=== PATIENT | female | born 1975 | race African-American/Black ===

== ENCOUNTER 2017-06-23 20:10 | Emergency (ER) | payer OTHER ==
[2017-06-23 20:15] VITALS: BP 149/83; PULSE 71; RESP 20; TEMP 98.1; O2SAT 100
[2017-06-23] MEDS ORDERED: MEDI220T PO (21:08)
[2017-06-23] MEDS ORDERED: PRED20 PO (21:08)
--- NOTE | 2017-06-23 21:09 | PD ---
HPI . Head injury Chief Complaint: Headache Time Seen by Provider: 20:30 Travel History International Travel<30 days: No Contact w/Intl Traveler<30days: No Traveled to known affect area: No History of Present Illness HPI 42-year-old female presents to emergency room for evaluation of head injury that occurred last night. Patient was moving a dryer and bumped the left frontal aspect of skull. Patient denies any loss consciousness. Patient does not take any blood thinners. Patient has history of MS. Patient states that when she has her MS exacerbations she has numbness and tingling in her right arm. PFSH Past Medical History Neurologic: Yes (MS) Tetanus Vaccination: > 5 Years Influenza Vaccination: No ?: Not LMP: 06/17/17 Past Surgical History Surgical History: No Previous Surgery Social History Alcohol Use: Yes (socially) Tobacco Use: No Substance Use: No Allergies-Medications (Allergen,Severity, Reaction): Coded Allergies: No Known Allergies (Unverified , 06/23/17) Reported Meds & Prescriptions Reported Meds & Active Scripts Active Naproxen Sodium 220 Mg Tab 440 Mg PO BID PRN Prednisone 20 Mg Tab 40 Mg PO DAILY 5 Days Take 40 mg (2 tablets) daily for 5 days Review of Systems Except as stated in HPI: all other systems reviewed are Neg Physical Exam Narrative GENERAL: Well-nourished, well-developed 42-year-old female patient in no acute distress. Nontoxic appearing. SKIN: Focused skin assessment warm/dry. HEAD: Normocephalic. Atraumatic. NEUROLOGICAL: Awake and alert. Cranial nerves II through XII intact. Motor and sensory grossly within normal limits. Five out of 5 muscle strength in all muscle groups. Normal speech. EYES: No scleral icterus. No injection or drainage. NECK: Supple, trachea midline. No JVD or lymphadenopathy. CARDIOVASCULAR: Regular rate and rhythm without murmurs, gallops, or rubs. RESPIRATORY: Breath sounds equal bilaterally. No accessory muscle use. GASTROINTESTINAL: Abdomen soft, non-tender, nondistended. MUSCULOSKELETAL: No cyanosis, or edema. BACK: Nontender without obvious deformity. No CVA tenderness. Data Data Last Documented VS Vital Signs Date Time Temp Pulse Resp B/P (MAP) Pulse Ox O2 Delivery O2 Flow Rate FiO2 06/23/17 20:15 98.1 71 20 149/83 (105) 100 Orders Orders Naproxen (Naprosyn) (06/24/17 09:00) Ice/Cold Pack (06/23/17 21:10) Ed Discharge Order (06/23/17 21:10) [facility] Medical Decision Making Medical Screen Exam Complete: Yes Emergency Medical Condition: Yes Differential Diagnosis Differential diagnoses include but not limited to concussion, ICH, head injury, hematoma, MS exacerbation Narrative Course 42-year-old female presents to emergency room for evaluation of head injury that occurred last night when she bumped the left frontal aspect of her skull on a dryer that she was moving. Patient denies any loss consciousness. Patient denies any nausea vomiting. The head is atraumatic. Due to the length of time since the injury, lack of physiological symptoms and intact neuro exam it is highly unlikely that the patient has any acute intracranial abnormality from bumping her head. Risks and benefits of radiation discussed with patient and it was opted to defer radiological imaging at this time. Patient will return the emergency Department with any acute changes. Patient given a prescription for prednisone for her MS exacerbation. Patient states that she has numbness and tingling in her right arm when she has MS exacerbations and has taken prednisone for that in the past. Patient given a prescription for naproxen for pain and ice pack for pain. Patient relieved and reassured on physical exam. Patient is planning on traveling tomorrow and wanted to ensure that she didn't have a brain bleed prior to traveling. I reassured the patient based on her physiological exam of the length of time since injury that it was highly unlikely and the patient opted to defer radiological imaging. Patient will be discharged home with instructions to follow up with her primary care physician and neurologist regarding MS exacerbation and return to the emergency Department with any worsening condition. Diagnosis Primary Impression: Head injury Qualified Codes: S09.90XA - Unspecified injury of head, initial encounter Referrals: Primary Care Physician Patient Instructions: General Instructions, Head Injury (DC) Additional Instructions: Please return to emergency department if your symptoms return or worsen. Follow up with your primary care provider. Take medications as prescribed. Med/Other Pt SpecificInfo: Prescription(s) given Scripts Naproxen Sodium (Naproxen Sodium) 220 Mg Tab 440 MG PO BID Y for Pain Management, #10 TAB 0 Refills Prov: Yen Boone 06/23/17 Prednisone (Prednisone) 20 Mg Tab 40 MG PO DAILY for 5 Days, #10 TAB 0 Refills Take 40 mg (2 tablets) daily for 5 days Prov: Yen Boone 06/23/17 Disposition: 01 DISCHARGE HOME Condition: Stable Yen Boone Jun 23, 2017 21:09
[2017-06-24] MEDS ORDERED: NAPROXEN 500 MG TAB PO SCH (09:00)
== END 2017-06-23 21:24 | disposition home or self-care (01) ==
LOC: PHEFT 20:10
DX: S09.90XA Unspecified injury of head, initial encounter (principal); W22.8XXA Striking against or struck by other objects, initial encounter; Y92.009 Unspecified place in unspecified non-institutional (private) residence as the place of occurrence of the external cause
CPT/HCPCS: 99283